=== PATIENT | female | born 1965 | race Caucasian/White ===

== ENCOUNTER → 2018-02-04 12:00 | Outpatient (CLI) | payer OTHER, SELFPAY ==
--- NOTE | 2018-02-04 | DI.US.S_ITS ---
PROCEDURE: US ABDOMEN LIMITED INDICATIONS: Diverticulitis of intestine, part unspecified, wit TECHNIQUE: Real-time focused scanning was performed of the abdomen, with image documentation. COMPARISON: [facility], , PELVIC COMPLETE, 03/18/2017, 13:38. FINDINGS: Limited evaluation at physician request, no evidence of bowel wall thickening or abnormal free fluid, or loculated fluid found over the peritoneal space. IMPRESSION: No abnormality seen. Please note that significant portions of the abdomen and pelvis are not effectively visualized by ultrasound due to bowel gas, and depending on the clinical status followup by CT scanning may subsequently become necessary. Dictated by: Berhane Carranza M.D. on 02/04/2018 at 15:12 Approved by: Berhane Carranza M.D. on 02/04/2018 at 15:13
== END ==
PROVIDERS: PCP Specialist; Visit Provider Specialist
DX: K57.92 Diverticulitis of intestine, part unspecified, without perforation or abscess without bleeding (principal)
CPT/HCPCS: 76705

== ENCOUNTER → 2018-02-06 13:30 | Outpatient (CLI) | payer OTHER, SELFPAY ==
--- NOTE | 2018-02-06 | DI.CT.S_ITS ---
PROCEDURE: CT ABDOMEN PELVIS W CON INDICATIONS: DIVERTICULITIS TECHNIQUE: After the administration of oral and intravenous contrast, 5 mm thick sections acquired from the diaphragms to the symphysis. 5 mm thick coronal and sagittal reformats were performed. For radiation dose reduction, the following was used: automated exposure control, adjustment of mA and/or kV according to patient size. COMPARISON: None. FINDINGS: Image quality: Excellent. ABDOMEN: Lung bases: Lung bases are clear. Heart size is normal. Solid organs: Liver is normal in size and enhancement. Gallbladder appears surgically resected. Biliary system is non-dilated. Pancreas enhances normally. Spleen is normal in size and enhancement. No adrenal nodules. Kidneys are normal in size and enhancement, without hydronephrosis. There is a large cystic structure in apposition to the anterior border of the left kidney, potentially a large exophytic renal cortical cyst measuring up to 10.5 x 13.2 cm, with small amounts of adjacent calcification along its posterior and upper border. No soft tissue component is found. Peritoneum and bowel: Stomach, small bowel, and colon loops are normal in caliber and wall thickness. No free fluid or air. Nodes and vessels: No retroperitoneal or mesenteric adenopathy. Aorta and inferior vena cava are normal in caliber. Miscellaneous: No ventral hernias. PELVIS: Genitourinary: Bladder wall thickness is normal. There is a left adnexal cystic structure, measuring up to 4.3 x 4.3 cm, and the uterus appears absent. Miscellaneous: No inguinal hernias or adenopathy. Diverticulosis is noted along the sigmoid colon, and there is mild stranding at the right lower margin of the pelvis, centered on series 2 image 79, consistent with mild focal acute diverticulitis. Bones: No suspicious bony lesions. No vertebral body compression fractures. IMPRESSION: 1. Mild focal acute diverticulitis at the left lower quadrant to the left margin of the sigmoid colon in the setting of relatively prominent sigmoid diverticulosis. No peridiverticular abscess is found. 2. Left adnexal cystic masslike structure measuring up to 4.3 cm which is in the size range that requires pelvic ultrasound followup. Further characterization to establish possible presence of solid component would be recommended and thereafter followup to confirm resolution likely will become necessary. 3. Large multilobulated cystic structure contiguous with the anterior border of the left kidney, likely a large exophytic cyst with small amounts of associated calcification posteriorly and superiorly measuring up to 10.5 x 13.2 cm. Urology consultation may be warranted given the fact that this compresses the left kidney posteriorly. Hydronephrosis, however, is not associated. Dictated by: Berhane Carranza M.D. on 02/06/2018 at 15:55 Approved by: Berhane Carranza M.D. on 02/06/2018 at 16:16
== END ==
PROVIDERS: PCP Specialist; Visit Provider Specialist
DX: K57.32 Diverticulitis of large intestine without perforation or abscess without bleeding (principal); N28.1 Cyst of kidney, acquired; N94.89 Other specified conditions associated with female genital organs and menstrual cycle
CPT/HCPCS: 74177; Q9967

== ENCOUNTER → 2018-03-10 07:55 | Outpatient (CLI) | payer OTHER, SELFPAY ==
--- NOTE | 2018-03-10 | DI.CT.S_ITS ---
PROCEDURE: CT ABDOMEN W CON INDICATIONS: KIDNEY CYST TECHNIQUE: After the administration of oral and intravenous contrast, 5 mm thick sections acquired from the diaphragms to the iliac crests. 5 mm thick coronal and sagittal reformats were acquired. For radiation dose reduction, the following was used: automated exposure control, adjustment of mA and/or kV according to patient size. COMPARISON: [facility], US, US ABDOMEN LIMITED, 02/04/2018, 14:44. [facility], CT, CT ABDOMEN PELVIS W CON, 02/06/2018, 14:23. FINDINGS: Image quality: Excellent. Lung bases: Lung bases are clear. Heart size is normal. Solid organs: Liver is normal in size and diffusely hypodense suggesting fatty infiltration. Gallbladder is surgically absent. Biliary system is non dilated. Pancreas enhances normally. Spleen is normal in size and enhancement. No right adrenal nodules. Kidneys are normal in size, without hydronephrosis. There is a 11.3 x 11.4 x 12.8 cm lobulated cystic lesion within the left upper quadrant anterior to the kidney, and medial to the spleen, and lateral to the adrenal gland. Calcification is present within the superomedial aspect of the cyst. The adrenal gland has a splayed appearance directly abutting the cyst suggesting adrenal origin. There is no definite communication with the adjacent left kidney; however there is mass effect on the kidney which is compressed posteriorly. No delayed nephrogram or hydronephrosis. Peritoneum and bowel: Contrast enhanced bowel loops appear normal in caliber. No free fluid or air. Nodes and vessels: No retroperitoneal or mesenteric adenopathy by size criteria. Aorta and inferior vena cava are normal in size. Bones: No suspicious bony lesions. No vertebral body compression fractures. Miscellaneous: No ventral hernias. The right adnexal cystic lesion is partially visualized and is decreased in size and now measures 2.8 x 1.6 cm in the axial plane (previously measured 4.2 x 3.6 cm in the same plane). IMPRESSION: 1. Large left adrenal gland cyst with dystrophic calcifications as described above. Please note, this was described as a renal cyst on the prior study dated 02/06/18. However, given the splayed appearance of the adrenal gland, this most likely represents a large adrenal cyst. 2. Decreased size of the left adnexal cyst when compared with the prior study. Dictated by: Anabell Amin M.D. on 03/10/2018 at 13:05 Approved by: Anabell mAin M.D. on 03/10/2018 at 13:43
== END ==
PROVIDERS: PCP Specialist; Visit Provider Specialist
DX: E27.8 Other specified disorders of adrenal gland (principal)
CPT/HCPCS: 74160; Q9967

== ENCOUNTER → 2019-02-24 08:46 | Outpatient (CLI) | payer OTHER, SELFPAY ==
--- NOTE | 2019-02-24 | DI.RAD.S_ITS ---
PROCEDURE: XR HAND LT 2V INDICATIONS: BILATERAL HAND PAIN TECHNIQUE: 2 views of the hand(s) acquired. COMPARISON: None. FINDINGS: Bones: No fractures or dislocations. Carpal bones are normally aligned. No suspicious bony lesions. Normal bone mineralization. No osseous erosions. No periarticular osteopenia. Soft tissues: No suspicious soft tissue calcifications. IMPRESSION: Left hand without radiographic abnormalities. No evidence for significant degenerative change or inflammatory/erosive arthropathy. Dictated by: Ta Matos M.D. on 02/24/2019 at 12:59 Approved by: Ta Matos M.D. on 02/24/2019 at 13:01
--- NOTE | 2019-02-24 | DI.RAD.S_ITS ---
PROCEDURE: XR HAND RT 2V INDICATIONS: BILATERAL HAND PAIN TECHNIQUE: 2 views of the hand(s) acquired. COMPARISON: None. FINDINGS: Bones: No fractures or dislocations. Carpal bones are normally aligned. No suspicious bony lesions. Normal bone mineralization. No osseous erosions. No periarticular osteopenia. Soft tissues: No suspicious soft tissue calcifications. IMPRESSION: Right hand without radiographic abnormalities or significant degenerative change or erosive/inflammatory arthropathy. Dictated by: Ta Matos M.D. on 02/24/2019 at 13:01 Approved by: Ta Matos M.D. on 02/24/2019 at 13:02
[2019-02-24 10:06] LABS: Add Manual Diff / Slide Review NO; Basophils Absolute Auto 100 /uL (0-100); Basophils Percent Auto 1.1 % (0-2); Eosinophils Absolute Auto 100 /uL (0-450); Hemoglobin 13.7 g/dL (12.0-16.0); Lymphocytes Absolute Auto 1700 /uL (1100-4500); Lymphocytes Percent Auto 24.2 % (25-40); Mean Corpuscular HGB Conc 35.2 % (30-36); Mean Corpuscular Hemoglobin 31.3 PG (26-34); Mean Corpuscular Volume 88.8 fL (80-100); Monocytes Absolute Auto 600 /uL (0-900); Monocytes Percent Auto 9.1 % (3-14); Neutrophils Absolute Auto 4400 /uL (1500-7000); Neutrophils Percent Auto 63.6 % (50-75); Platelet Count 236 X10^3/uL (150-400); Red Cell Distribution Width 15.9 % (11.6-14.8); White Blood Cell Count 6.9 X10^3/uL (4.5-11.0)
[2019-02-24 10:35] LABS: Erythrocyte Sedimentation Rate 10 MM/HR (0-20)
[2019-02-24 10:54] LABS: C-Reactive Protein Quant 1.6 mg/dL (<1.0)
[2019-02-24 11:02] LABS: Rheumatoid Factor < 8.6 IU/mL (<12.0)
[2019-02-24 12:15] LABS: Thyroid Stimulating Hormone 1.67 uIU/mL (0.47-4.68)
[2019-02-28 15:00] LABS: ANA Pattern NUCLEAR, SPECKLED; ANA Screen, IFA POSITIVE (NEGATIVE)
== END ==
PROVIDERS: PCP Physician Assistant Medical; Visit Provider Physician Assistant Medical
DX: M79.642 Pain in left hand (principal); M79.641 Pain in right hand; R53.83 Other fatigue; M25.40 Effusion, unspecified joint
CPT/HCPCS: 36415; 73120; 84443; 85025; 85651; 86038; 86140; 86430

== ENCOUNTER 2019-06-03 19:14 | Emergency (ER) | payer OTHER, SELFPAY ==
[2019-06-03 19:15] VITALS: BP 155/85; PULSE 80; RESP 20; TEMP 36.7; O2SAT 96
--- NOTE | 2019-06-03 19:25 | DI.RAD.S_ITS ---
PROCEDURE: XR KNEE LT 3V INDICATIONS: direct injury TECHNIQUE: 3 views of the knee were acquired. COMPARISON: None. FINDINGS: Bones: No fractures or dislocations. No suspicious bony lesions. Soft tissues: No joint effusion. No suspicious soft tissue calcifications. IMPRESSION: No evidence acute bony abnormality of the left knee. If clinical suspicion and/or symptoms persist, further assessment with repeat plain films, or advanced imaging (e.g., CT, MRI, or bone scan) may be helpful for further assessment. Dictated by: Philippe Golden M.D. on 06/03/2019 at 19:59 Approved by: Philippe Golden M.D. on 06/03/2019 at 20:00
[2019-06-03] MEDS: HYDROCODONE/ACET 5/325 PREPACK 1 BOTTLE MISC (21:20)
--- NOTE | 2019-06-03 21:26 | ED_ITS ---
HPI - Extremity Injury (Lower) <CHANDLER Casanova - Last Filed: 06/03/19 21:31> General Chief Complaint: Extremity Injury, Lower Stated Complaint: lt knee injury Time Seen by Provider: 06/03/19 19:34 Source: patient and family Mode of arrival: Ambulatory Limitations: no limitations History of Present Illness HPI Narrative: The patient is a 53-year-old female nonsmoker presents with her son for chief complaint of acute left knee injury. She states that she was walking her dogs while pulling the trash can and slipped in mud. She states that her leg went out and she felt sudden pain and a pop in her left knee. She denies any previous injuries of her knee. She has applied ice but not taken anything. 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 Related Data Allergies Allergy/AdvReac Type Severity Reaction Status Date / Time codeine Allergy Seizure Verified 06/03/19 19:21 latex Allergy Verified 06/03/19 19:21 Review of Systems <CHANDLER Casanova - Last Filed: 06/03/19 21:31> Review of Systems Narrative: GENERAL: Denies chills, fatigue, malaise, fever, sweats. HEENT: Denies sinus pain, ear pain, sore throat, difficulty swallowing, dizziness. RESPIRATORY: Denies dyspnea, cough, wheezing, hemoptysis, sputum. CARDIOVASCULAR: Denies chest pain, palpitations, orthopnea, edema, GASTROINTESTINAL: Denies nausea, vomiting, abdominal pain, diarrhea, constipation, melena. : Denies dysuria, frequency, incontinence, hematuria, urinary retention. MUSCULOSKELETAL: See HPI SKIN: See HPI NEUROLOGIC: Denies weakness, headache, numbness, change in speech, confusion, seizures, incoordination. PSYCHIATRIC: No concerning psychosocial issues. 12 point review of systems is negative except for those stated above Patient History <CHANDLER Casanova - Last Filed: 06/03/19 21:31> Social History Smoking Status: Never smoker Smoking Status: Never smoker Substance Use Type: does not use Exam <CHANDLER Casanova - Last Filed: 06/03/19 21:31> Narrative Exam Narrative: GENERAL: This is a well-nourished, well-developed patient, appears uncomfortable with left leg elevated HEAD: Atraumatic. Normocephalic. No temporal or scalp tenderness. EYES: Pupils equal round and reactive. Extraocular motions intact. No scleral icterus. No injection or drainage. ENT: Nose without bleeding, purulent drainage or septal hematoma. Airway patent. NECK: Trachea midline. No JVD or lymphadenopathy. Supple, nontender, no men ingeal signs. CARDIOVASCULAR: Regular rate and rhythm RESPIRATORY: No cough. No increased respiratory effort. No accessory muscle use. EXTREMITIES: General pain to palpation left knee. No pain to tibial plateau palpation. Pain to posterior knee palpation. Patient is able to lift entire leg off of stretcher, able to flex and extend left ankle. Patient declines ligamentous testing in the emergency department. BACK: Nontender without deformity or crepitance. No flank tenderness. NEURO: AOx3. SKIN: No rash or erythema on visible skin Initial Vital Signs Initial Vital Signs: Vital Signs Temperature 98.0 F 06/03/19 19:15 Pulse Rate 80 06/03/19 19:15 Respiratory Rate 06/03/19 19:15 Blood Pressure 155/85 H 06/03/19 19:15 Pulse Oximetry 96 06/03/19 19:15 <Adrian Marshall DO - Last Filed: 06/04/19 02:57> Initial Vital Signs Initial Vital Signs: Vital Signs Temperature 98.0 F 06/03/19 19:15 Pulse Rate 80 06/03/19 19:15 Respiratory Rate 06/03/19 19:15 Blood Pressure 155/85 H 06/03/19 19:15 Pulse Oximetry 96 06/03/19 19:15 Procedures <CHANDLER Casanova - Last Filed: 06/03/19 21:31> Orthopedic Splinting/Casting Injury #1: Side: left Lower Extremity Injury Location: knee Lower Extremity Immobilizer: knee immobilizer Post splinting neuro exam: intact Post splinting vascular exam: intact Placed by: Nursing Course <CHANDLER Casanova - Last Filed: 06/03/19 21:31> Orders Ordered: ED Orders 06/03/19 19:25 XR knee LT 3V Stat Discontinued Medications Hydrocodone Bitart/Acetaminophen (Vicodin 5/325 Prepack) 1 bottle MISC SEEINSTR ONE Stop: 06/03/19 21:09 Last Admin: 06/03/19 21:20 Dose: 1 bottle Documented by: MATT Vital Signs Vital signs: Vital Signs - 8 hr 06/03/19 19:15 06/03/19 21:35 Temperature 98.0 F Pulse Rate 80 80 Respiratory Rate 20 Blood Pressure 155/85 H 140/78 Pulse Oximetry 96 97 <Adrian Marshall DO - Last Filed: 06/04/19 02:57> Orders Ordered: ED Orders 06/03/19 19:25 XR knee LT 3V Stat Discontinued Medications Hydrocodone Bitart/Acetaminophen (Vicodin 5/325 Prepack) 1 bottle MISC SEEINSTR ONE Stop: 06/03/19 21:09 Last Admin: 06/03/19 21:20 Dose: 1 bottle Documented by: MATT Vital Signs Vital signs: Vital Signs - 8 hr 06/03/19 19:15 06/03/19 21:35 Temperature 98.0 F Pulse Rate 80 80 Respiratory Rate 20 Blood Pressure 155/85 H 140/78 Pulse Oximetry 96 97 MDM - Extremity Injury (Lower) <CHANDLER Casanova - Last Filed: 06/03/19 21:31> Imaging Data Extremity x-ray #1: Radiologist's Impression: [place] [address] XRay Report Signed Patient: Faye Alvarez KMR#: [id number] : [id number]:[id number] Age/Sex: 53 / FDate of Service: 06/03/19 Loc: ED Accession Number: [id number] Procedure: XR knee LT 3V Ordering Provider: Adrian Marshall D.O. PROCEDURE: XR KNEE LT 3V INDICATIONS: direct injury TECHNIQUE: 3 views of the knee were acquired. COMPARISON: None. FINDINGS: Bones: No fractures or dislocations. No suspicious bony lesions. Soft tissues: No joint effusion. No suspicious soft tissue calcifications. IMPRESSION: No evidence acute bony abnormality of the left knee. If clinical suspicion and/or symptoms persist, further assessment with repeat plain films, or advanced imaging (e.g., CT, MRI, or bone scan) may be helpful for further assessment. Dictated by: Philippe Golden M.D. on 06/03/2019 at 19:59 Approved by: Philippe Golden M.D. on 06/03/2019 at 20:00 [facility] Narrative Medical decision making narrative: The patient is a 53-year-old female who presents with a chief complaint of sudden onset of knee pain after falling while walking the dog. She denies any other injury. She is neurovascularly intact, declined ligamentous testing throughout her stay in the emergency department. X-ray shows no acute fractures, though I discussed that it does not help rule out soft tissue injury. Patient was placed in a knee immobilizer for comfort. She states that this helped and she was able to ambulate. I encouraged at length follow up with primary care provider, coming back to the emergency department for any acute concerns. Patient has no questions or concerns upon discharge and states understanding of return precautions as well as follow-up care. Discharge Plan Departure Patient Disposition: Home Clinical Impression: Acute pain of left knee Discharge Date/Time: 06/03/19 21:37 Instructions: DI for Knee Sprain, DI for Knee Pain Activity Restrictions/Additional Instructions: As I discussed, your x-ray shows no acute fracture. This does not rule out a soft tissue injury such as a ligament or tendon injury. It is important that you follow up with primary care provider, especially if worsening or no improvement. There can be fractures that did not show up on initial x-ray. I have given you a take-home pack of narcotic for pain. Be aware that this can be constipating and sedating. I encouraged taking with a stool softener, pushi ng fluids and fiber. Do not take and drive, operate heavy machinery, etc. Do not combine it with any other sedating substances such as alcohol. The combination of narcotics and alcohol and/or other sedatives can be lethal. Please be aware that we do not provide refills of controlled substances in the emergency department. Please follow up with her primary care provider. Please come back to the emergency department for any acute concerns such as chest pain, shortness of breath, concern of decreased circulation etcetera Referrals: Connie Blandon [Primary Care Provider] -
[2019-06-03 21:35] VITALS: BP 140/78; PULSE 80; O2SAT 97
== END 2019-06-03 21:37 | disposition home or self-care (01) ==
PROVIDERS: Emergency Provider Nurse Practitioner Family; PCP Physician Assistant Medical
DX: M25.562 Pain in left knee (principal); W01.0XXA Fall on same level from slipping, tripping and stumbling without subsequent striking against object, initial encounter
CPT/HCPCS: 73562; 99283